=== PATIENT | female | born 1945 | race Two or more races ===

== ENCOUNTER 2022-11-25 23:36 | Emergency (ER) | payer OTHER ==
[~2022-11-25] VITALS: Ht 149.9 cm; Wt 50.8 kg
[2022-11-26] MEDS ORDERED: CLONAZEPAM0.5 MG PO (00:14)
[2022-11-26] MEDS ORDERED: LEVOTHYROXINE25 MC1 PO (00:15)
[2022-11-26] MEDS ORDERED: ESCITALOPRAM OXA5 MG PO (00:15)
[2022-11-26] MEDS ORDERED: MONTELUKAST SOD10 MG PO (00:16)
[2022-11-26] MEDS ORDERED: LOVASTATIN20 MG PO (00:16)
[2022-11-26] MEDS ORDERED: PANTOPRAZOLE SO40 MG PO (00:16)
[2022-11-26] MEDS ORDERED: MEDROLPACK PO (08:10)
[2022-11-26] MEDS ORDERED: DICLOFENAC POTA50 MG PO (08:10)
== END 2022-11-26 08:24 | disposition home or self-care (01) ==
LOC: ER 23:36
DX: S92.912A Unspecified fracture of left toe(s), initial encounter for closed fracture (principal); S09.8XXA Other specified injuries of head, initial encounter; W10.0XXA Fall (on)(from) escalator, initial encounter; Y93.89 Activity, other specified; Y92.011 Dining room of single-family (private) house as the place of occurrence of the external cause; S59.802A Other specified injuries of left elbow, initial encounter; S89.82XA Other specified injuries of left lower leg, initial encounter; S99.822A Other specified injuries of left foot, initial encounter; M19.09 Primary osteoarthritis, other specified site; E03.9 Hypothyroidism, unspecified; F32.89 Other specified depressive episodes; Z88.8 Allergy status to other drugs, medicaments and biological substances